=== PATIENT | male | born 1975 | race Caucasian/White ===

== ENCOUNTER 2016-08-15 18:59 | Emergency (ER) | payer SELFPAY | END 2016-08-15 21:58 | disposition home or self-care (01) | LOC: ER 18:59 | DX: M54.12 Radiculopathy, cervical region (principal) | CPT/HCPCS: 96372; 99283; A9270-GY; J2800 ==

== ENCOUNTER 2016-08-18 15:35 | Emergency (ER) | payer SELFPAY | END 2016-08-18 15:45 | disposition home or self-care (01) | LOC: ER 15:35 | DX: M54.2 Cervicalgia (principal) | CPT/HCPCS: 96372; 99283; J2360 ==

== ENCOUNTER 2016-09-04 16:51 | Emergency (ER) | payer SELFPAY | END 2016-09-04 16:59 | disposition home or self-care (01) | LOC: ER 16:51 | DX: M54.12 Radiculopathy, cervical region (principal) | CPT/HCPCS: 72040; 99283 ==